=== PATIENT | female | born 1930 | race Caucasian/White ===

== ENCOUNTER 2017-03-09 12:36 | Emergency (ER) | payer OTHER ==
[~2017-03-09] VITALS: Ht 165.1 cm; Wt 66.0 kg
[~2017-03-09 12:36] MED LIST: CALC1TAB68 PO; CLON-364 PO; CLON0.12 PO; HYDR-3144 PO; HYDR-3307 PO; LISI-167 PO; METH500T97 PO; ONDA4TAB13 PO; POLY17PO5 PO; SERT100T5 PO; TIZA4TAB PO; TRAM50TA2 PO; ZOLP-413 PO
[2017-03-09] MEDS ORDERED: ONDANSETRON ODT 4 MG PO ONE (13:00)
[2017-03-09 13:27] LABS: HEMATOCRIT 36.8 % (34.6-47.8); HEMOGLOBIN 11.9 g/dL (11.7-16.4); WHITE BLOOD COUNT 11.3 x10^3/uL (3.4-10)
[2017-03-09 13:35] LABS: BLOOD UREA NITROGEN 9 mg/dL (7-18)
[2017-03-09 14:17] VITALS: BP 154/91
== END 2017-03-09 15:05 | disposition home or self-care (01) ==
LOC: ED 13:31
DX: S82.51XA Displaced fracture of medial malleolus of right tibia, initial encounter for closed fracture (principal); I10 Essential (primary) hypertension; F32.9 Major depressive disorder, single episode, unspecified; F11.20 Opioid dependence, uncomplicated; X58.XXXA Exposure to other specified factors, initial encounter; Y93.89 Activity, other specified; Y92.89 Other specified places as the place of occurrence of the external cause; Y99.8 Other external cause status; Z85.3 Personal history of malignant neoplasm of breast
CPT/HCPCS: 29515; 36415; 80048; 82040; 85025

== ENCOUNTER 2017-10-12 10:14 | Inpatient (IN) | payer OTHER ==
[~2017-10-12] VITALS: Ht 165.1 cm; Wt 64.7 kg
[~2017-10-12 10:14] MED LIST changes: -HYDR-3144 PO; +HYDR-3245 PO
[2017-10-12] MEDS ORDERED: IBUP200T49 PO (10:57)
[2017-10-12] MEDS ORDERED: OMEG1CAP34 PO (10:57)
[2017-10-12] MEDS ORDERED: MULT-6 PO (10:57)
[2017-10-12] MEDS ORDERED: SODIUM CHLORIDE FLUSH 10ML SYR IVF ONE (11:00)
[2017-10-12 11:43] LABS: BASOPHILS # (AUTO) 0.04 x10^3/uL (0-0.1); BASOPHILS % (AUTO) 1 % (0-1); EOSINOPHILS # (AUTO) 0.53 x10^3/uL (0-0.4); EOSINOPHILS % (AUTO) 7 % (1-7); LYMPHOCYTES # (AUTO) 1.59 x10^3/uL (1-3.4); LYMPHOCYTES % (AUTO) 20 % (22-44); MD NO; MEAN CORPUSCULAR HEMOGLOBIN 31.3 pg (27.0-34.8); MEAN CORPUSCULAR HGB CONC 33.4 g/dL (32.4-35.8); MEAN CORPUSCULAR VOLUME 93.9 fL (80-100); MEAN PLATELET VOLUME 7.5 fL (7.4-10.4); MONOCYTES # (AUTO) 0.87 x10^3/uL (0.2-0.8); MONOCYTES % (AUTO) 11 % (2-9); NEUTROPHILS # (AUTO) 5.11 x10^3/uL (1.8-6.8); NEUTROPHILS % (AUTO) 63 % (42-75); PLATELET COUNT 279 x10^3/uL (130-400); RED BLOOD COUNT 4.15 x10^6/uL (3.82-5.3); RED CELL DISTRIBUTION WIDTH 14.6 % (9.6-15.2)
[2017-10-12 11:52] LABS: MICROSCOPIC NOT IND
[2017-10-12 11:54] LABS: CULTURE INDICATED? NO
[2017-10-12 11:55] LABS: ALANINE AMINOTRANSFERASE 20 U/L (12-78); ALBUMIN 4.1 g/dL (3.4-5.0); ANION GAP 7 mmol/L (5-15); CALCIUM 9.3 mg/dL (8.5-10.1); CHLORIDE 103 mmol/L (98-107); CREATININE 0.65 mg/dL (0.55-1.02)
[2017-10-12 11:57] LABS: ALKALINE PHOSPHATASE 98 U/L (45-117); BILIRUBIN,TOTAL 0.6 mg/dL (0.2-1.0); CREATINE KINASE, TOTAL 69 U/L (26-192); TOTAL PROTEIN 7.8 g/dL (6.4-8.2)
[2017-10-12] MEDS ORDERED: SODIUM CHLORIDE FLUSH 10ML SYR IVF PRN (12:30)
[2017-10-12] MEDS ORDERED: ENALAPRILAT 1.25 MG/ML, 2ML IVPush PRN (13:30)
[2017-10-12] MEDS ORDERED: DOCUSATE 100 MG CAPSULE PO PRN (13:30)
[2017-10-12] MEDS ORDERED: POLYETHYLENE GLYCOL 17 GM PACKET PO PRN (13:30)
[2017-10-12] MEDS ORDERED: ONDANSETRON 2MG/ML, 2ML IVPush PRN (13:30)
[2017-10-12] MEDS ORDERED: ACETAMINOPHEN 325 MG TABLET PO PRN (13:30)
[2017-10-12] MEDS ORDERED: BISACODYL 10 MG SUPP PR PRN (13:30)
[2017-10-12] MEDS ORDERED: KETOROLAC 30 MG/1 ML IVPush PRN (13:30)
[2017-10-12 13:36] VITALS: BP 160/99
[2017-10-12 14:49] LABS: FOLATE LEVEL > 20.0 ng/mL (3.1-17.5)
[2017-10-12] MEDS: ENOXAPARIN 40 MG/0.4 ML SQ SCH (15:00)
[2017-10-12] MEDS: CALCIUM/VITAMIN D3 250-125 TABLET PO SCH ×2 (15:02→20:49)
[2017-10-12 17:02] LABS: CLOSTRIDIUM DIFFICILE ANTIGEN NEGATIVE; CLOSTRIDIUM DIFFICILE TOXIN NEGATIVE (Negative)
[2017-10-12 18:45] VITALS: BP 138/88
[2017-10-12] MEDS: SODIUM CHLORIDE FLUSH 10ML SYR IVF SCH (20:49)
[2017-10-13 01:38] VITALS: BP 129/86
[2017-10-13 07:10] VITALS: BP 148/84
[2017-10-13] MEDS: CALCIUM/VITAMIN D3 250-125 TABLET PO SCH ×3 (08:57→19:56)
[2017-10-13] MEDS: MULTIVITAMIN 1 TABLET PO SCH (08:57)
[2017-10-13] MEDS: SERTRALINE 100MG TABLET PO SCH (08:57)
[2017-10-13] MEDS: OMEGA-3/FISH OIL CAPSULE PO SCH (08:57)
[2017-10-13] MEDS: SODIUM CHLORIDE FLUSH 10ML SYR IVF SCH ×2 (08:58→19:58)
[2017-10-13 12:45] VITALS: BP 143/77
[2017-10-13] MEDS: ENOXAPARIN 40 MG/0.4 ML SQ SCH (16:09)
[2017-10-13] MEDS: LOPERAMIDE 2 MG CAPSULE PO PRN ×2 (16:09→19:56)
[2017-10-13 19:25] VITALS: BP 116/74
[2017-10-14] MEDS: LOPERAMIDE 2 MG CAPSULE PO PRN (00:27)
[2017-10-14 01:07] VITALS: BP 129/76
[2017-10-14 07:11] VITALS: BP 136/81
[2017-10-14] MEDS ORDERED: ZOLP5TAB PO (08:40)
[2017-10-14] MEDS ORDERED: BUSP5TAB2 PO (08:40)
[2017-10-14] MEDS: MULTIVITAMIN 1 TABLET PO SCH (08:41)
[2017-10-14] MEDS: OMEGA-3/FISH OIL CAPSULE PO SCH (08:41)
[2017-10-14] MEDS: BUSPIRONE 5 MG TABLET PO SCH ×2 (08:41→15:31)
[2017-10-14] MEDS: SODIUM CHLORIDE FLUSH 10ML SYR IVF SCH (08:41)
[2017-10-14] MEDS: CALCIUM/VITAMIN D3 250-125 TABLET PO SCH ×2 (08:42→15:31)
[2017-10-14] MEDS: SERTRALINE 100MG TABLET PO SCH (08:42)
[2017-10-14 13:20] VITALS: BP 115/74
[2017-10-14] MEDS: ENOXAPARIN 40 MG/0.4 ML SQ SCH (15:28)
[2017-10-14] MEDS ORDERED: ZOLPIDEM 5MG TABLET PO SCH (21:00)
== END 2017-10-14 16:51 | DRG 605 ==
LOC: ED 11:02 → EDIP 12:16 → 3NE 13:00
PROVIDERS: ADMIT Internal Medicine; ATTEND Internal Medicine
PROC: 0T9B70Z Drainage of Bladder with Drainage Device, Via Natural or Artificial Opening (ICD-10-PCS; principal; 2017-10-12)
DX: S80.01XA Contusion of right knee, initial encounter (principal); M84.48XA Pathological fracture, other site, initial encounter for fracture; F03.90 Unspecified dementia, unspecified severity, without behavioral disturbance, psychotic disturbance, mood disturbance, and anxiety; M06.9 Rheumatoid arthritis, unspecified; W01.0XXA Fall on same level from slipping, tripping and stumbling without subsequent striking against object, initial encounter; F32.9 Major depressive disorder, single episode, unspecified; G89.11 Acute pain due to trauma; I10 Essential (primary) hypertension; M81.0 Age-related osteoporosis without current pathological fracture; R19.7 Diarrhea, unspecified; R09.02 Hypoxemia; R29.6 Repeated falls; Z85.3 Personal history of malignant neoplasm of breast; Z90.11 Acquired absence of right breast and nipple; Y93.89 Activity, other specified; Y92.098 Other place in other non-institutional residence as the place of occurrence of the external cause; Y99.8 Other external cause status
CPT/HCPCS: 36415; 70450; 71045; 80053; 81003; 82550; 82607; 82746; 84443; 85025; 87324; 93005; 99285; J1650; J1885

== ENCOUNTER 2018-07-05 21:47 | Inpatient (IN) | payer OTHER ==
[~2018-07-05] VITALS: Ht 165.1 cm; Wt 71.0 kg
[~2018-07-05 21:47] MED LIST changes: +BUSP5TAB2 PO; -CLON-364 PO; +CLON0.5T11 PO; +IBUP200T49 PO; +MULT-6 PO; +OMEG1CAP34 PO; +ZOLP5TAB PO
[2018-07-05 22:32] LABS: BASOPHILS # (AUTO) 0.07 x10^3/uL (0-0.1); BASOPHILS % (AUTO) 1 % (0-1); EOSINOPHILS # (AUTO) 0.24 x10^3/uL (0-0.4); EOSINOPHILS % (AUTO) 2 % (1-7); LYMPHOCYTES # (AUTO) 1.48 x10^3/uL (1-3.4); LYMPHOCYTES % (AUTO) 14 % (22-44); MD NO; MEAN CORPUSCULAR HEMOGLOBIN 32.3 pg (27.0-34.8); MEAN CORPUSCULAR HGB CONC 33.4 g/dL (32.4-35.8); MEAN CORPUSCULAR VOLUME 96.7 fL (80-100); MEAN PLATELET VOLUME 7.8 fL (7.4-10.4); MONOCYTES # (AUTO) 0.66 x10^3/uL (0.2-0.8); MONOCYTES % (AUTO) 6 % (2-9); NEUTROPHILS # (AUTO) 7.89 x10^3/uL (1.8-6.8); NEUTROPHILS % (AUTO) 76 % (42-75); PLATELET COUNT 240 x10^3/uL (130-400); RED BLOOD COUNT 4.04 x10^6/uL (3.82-5.3); RED CELL DISTRIBUTION WIDTH 13.6 % (9.6-15.2)
[2018-07-05 22:58] LABS: CALCIUM 8.7 mg/dL (8.5-10.1); CREATININE 0.68 mg/dL (0.55-1.02)
[2018-07-05] MEDS ORDERED: MORPHINE SULFATE 4 MG/ML, 1ML ONE ×2 (22:58→23:37)
[2018-07-05] MEDS ORDERED: ONDANSETRON 2MG/ML, 2ML IVPush ONE (23:00)
[2018-07-05] MEDS ORDERED: MORPHINE SULFATE 4 MG/ML, 1ML IVPush PRN (23:00)
[2018-07-05 23:01] LABS: ANION GAP 7 mmol/L (5-15); CHLORIDE 101 mmol/L (98-107)
[2018-07-05] MEDS ORDERED: SODIUM CHLORIDE 0.9% 1,000 ML IV SCH (23:07)
[2018-07-05 23:19] LABS: INTERNATIONAL NORMALIZED RATIO 0.99 (0.93-1.1); PROTHROMBIN TIME 10.5 Seconds (9.6-11.5)
[2018-07-05] MEDS ORDERED: GABA300C10 PO (23:28)
[2018-07-05] MEDS ORDERED: DOCUSATE 100 MG CAPSULE PO PRN (23:30)
[2018-07-05] MEDS ORDERED: GABAPENTIN 300 MG CAPSULE PO PRN (23:30)
[2018-07-05] MEDS ORDERED: PROMETHAZINE 25 MG/ML, 1ML IM PRN (23:30)
[2018-07-05] MEDS ORDERED: ONDANSETRON ODT 4 MG PO PRN (23:30)
[2018-07-05] MEDS ORDERED: hydrALAzine 20 MG/ML, 1ML IVPush PRN (23:30)
[2018-07-05] MEDS ORDERED: ONDANSETRON 2MG/ML, 2ML IVPush PRN (23:30)
[2018-07-05] MEDS ORDERED: LABETALOL 5MG/ML, 20ML IVPush PRN (23:30)
[2018-07-05] MEDS ORDERED: POLYETHYLENE GLYCOL 17 GM PACKET PO PRN (23:30)
[2018-07-05] MEDS ORDERED: BISACODYL 10 MG SUPP PR PRN (23:30)
[2018-07-05] MEDS ORDERED: OXYcodone/APAP 5/325MG TABLET PO PRN (23:30)
[2018-07-05] MEDS ORDERED: ONDANSETRON 2MG/ML, 2ML ONE (23:37)
[2018-07-06] MEDS: morphine SULFATE 10 MG/ML, 1ML IVPush PRN ×3 (00:20→10:10)
[2018-07-06 00:53] LABS: FREE T4 (FREE THYROXINE) 0.97 ng/dL (0.76-1.46); THYROID STIMULATING HORMONE 5.89 mIU/L (0.358-3.740)
[2018-07-06 00:55] VITALS: BP 170/92
[2018-07-06 01:00] VITALS: BP 131/83
[2018-07-06 01:53] LABS: MICROSCOPIC AUTO
[2018-07-06 01:58] LABS: CULTURE INDICATED? YES
[2018-07-06 05:48] LABS: BASOPHILS # (AUTO) 0.02 x10^3/uL (0-0.1); BASOPHILS % (AUTO) 0 % (0-1); EOSINOPHILS # (AUTO) 0.01 x10^3/uL (0-0.4); EOSINOPHILS % (AUTO) 0 % (1-7); LYMPHOCYTES # (AUTO) 0.81 x10^3/uL (1-3.4); LYMPHOCYTES % (AUTO) 6 % (22-44); MD NO; MEAN CORPUSCULAR HEMOGLOBIN 32.5 pg (27.0-34.8); MEAN CORPUSCULAR VOLUME 95.4 fL (80-100); MEAN PLATELET VOLUME 7.8 fL (7.4-10.4); MONOCYTES # (AUTO) 1.02 x10^3/uL (0.2-0.8); MONOCYTES % (AUTO) 8 % (2-9); NEUTROPHILS # (AUTO) 10.88 x10^3/uL (1.8-6.8); NEUTROPHILS % (AUTO) 86 % (42-75); PLATELET COUNT 221 x10^3/uL (130-400); RED BLOOD COUNT 3.97 x10^6/uL (3.82-5.3); RED CELL DISTRIBUTION WIDTH 13.3 % (9.6-15.2)
[2018-07-06 05:53] LABS: CHLORIDE 102 mmol/L (98-107)
[2018-07-06 06:11] LABS: ALANINE AMINOTRANSFERASE 25 U/L (12-78); ALBUMIN 3.7 g/dL (3.4-5.0); ALKALINE PHOSPHATASE 68 U/L (45-117); ANION GAP 9 mmol/L (5-15); BILIRUBIN,TOTAL 0.4 mg/dL (0.2-1.0); CHOL/HDL RATIO 3.8; CHOLESTEROL, TOTAL 248 mg/dL (140-239); CREATININE 0.65 mg/dL (0.55-1.02); HDL CHOL % 27 % (28-40); HDL CHOLESTEROL (DIRECT) 66 mg/dL (40-60); LDL CHOLESTEROL,CALCULATED 173 mg/dL (54-169); LDL/HDL RATIO 2.6 (0.5-3.0); TOTAL PROTEIN 6.6 g/dL (6.4-8.2); TRIGLYCERIDES 44 mg/dL (50-200); VLDL CHOLESTEROL 9 mg/dL (0-25)
[2018-07-06 08:06] VITALS: BP 154/88
[2018-07-06 10:00] LABS: TROPONIN I < 0.015 ng/mL (0.000-0.045)
[2018-07-06 13:15] LABS: HEMOGLOBIN A1C 4.2 % (4.2-6.3)
[2018-07-06 14:06] VITALS: BP 142/79
[2018-07-06] MEDS ORDERED: FENTANYL PF 100 MCG/2ML ONE ×3 (16:56→19:14)
[2018-07-06] MEDS ORDERED: SUCCINYLCHOLINE 20 MG/ML, 10ML ONE (17:39)
[2018-07-06] MEDS ORDERED: LIDOCAINE 2% 100MG/5ML SYRINGE ONE (17:39)
[2018-07-06] MEDS ORDERED: ROCURONIUM 10MG/ML,5ML ONE (17:39)
[2018-07-06] MEDS ORDERED: PROPOFOL 10 MG/ML, 20ML ONE (17:39)
[2018-07-06] MEDS ORDERED: ACETAMINOPHEN 325 MG TABLET PO PRN (19:00)
[2018-07-06] MEDS ORDERED: LABETALOL 5MG/ML, 20ML IV PRN (19:00)
[2018-07-06] MEDS ORDERED: HYDROmorphone 2 MG/ML, 1ML IVPush PRN ×2 (19:00→21:30)
[2018-07-06] MEDS ORDERED: OXYcodone 5 MG/5 ML ORAL.SOL UDC PO PRN ×2 (19:00→21:00)
[2018-07-06] MEDS ORDERED: hydrALAzine 20 MG/ML, 1ML IV PRN (19:00)
[2018-07-06] MEDS ORDERED: FENTANYL PF 100 MCG/2ML IV PRN (19:00)
[2018-07-06] MEDS ORDERED: ONDANSETRON ODT 8 MG PO PRN (19:00)
[2018-07-06] MEDS ORDERED: ONDANSETRON 2MG/ML, 2ML IV PRN ×2 (19:00→21:00)
[2018-07-06] MEDS ORDERED: PROMETHAZINE 25 MG/ML, 1ML IV PRN (19:00)
[2018-07-06] MEDS ORDERED: OXYcodone 5 MG/5 ML ORAL.SOL UDC ONE (19:14)
[2018-07-06 20:09] VITALS: BP 147/83
[2018-07-06] MEDS ORDERED: ASPI-496 PO (20:42)
[2018-07-06] MEDS: CLONAZEPAM MC SCH (21:00)
[2018-07-06] MEDS ORDERED: DIPHENHYDRAMINE 25 MG CAPSULE PO PRN (21:00)
[2018-07-06] MEDS ORDERED: HYDROcodone/APAP 7.5-325MG/15ML UDC PO PRN (21:00)
[2018-07-06] MEDS: KETOROLAC 30 MG/1 ML IV SCH (21:41)
[2018-07-06] MEDS: ATORVASTATIN 40 MG TABLET PO SCH (21:41)
[2018-07-06] MEDS: ACETAMINOPHEN 325 MG TABLET PO PRN (21:41)
[2018-07-06] MEDS: DOCUSATE 100 MG CAPSULE PO SCH (21:41)
[2018-07-06] MEDS: SODIUM CHLORIDE FLUSH 10ML SYR IVF SCH (21:42)
[2018-07-07 00:21] VITALS: BP 94/59
[2018-07-07] MEDS: CLONAZEPAM MC SCH ×2 (00:32→13:00)
[2018-07-07] MEDS: CEFAZOLIN PMX 1GM/50ML 50 ML IVPB SCH ×2 (01:24→13:05)
[2018-07-07 03:06] VITALS: BP 144/82
[2018-07-07] MEDS: ASPIRIN 81 MG TABLET EC PO SCH ×2 (06:47→17:02)
[2018-07-07] MEDS: KETOROLAC 30 MG/1 ML IV SCH ×2 (06:47→15:00)
[2018-07-07] MEDS: ENOXAPARIN 40 MG/0.4 ML SQ SCH (06:47)
[2018-07-07 07:07] VITALS: BP 141/74
[2018-07-07] MEDS: SODIUM CHLORIDE FLUSH 10ML SYR IVF SCH ×2 (09:00→21:00)
[2018-07-07] MEDS ORDERED: ERGOCALCIFEROL 50,000 UNIT CAPSULE PO SCH (09:00)
[2018-07-07] MEDS: SERTRALINE 100MG TABLET PO SCH (09:47)
[2018-07-07] MEDS: MULTIVITAMIN 1 TABLET PO SCH (09:47)
[2018-07-07] MEDS: GABAPENTIN 300 MG CAPSULE PO SCH (09:47)
[2018-07-07] MEDS: DOCUSATE 100 MG CAPSULE PO SCH ×2 (09:47→21:14)
[2018-07-07] MEDS: OMEGA-3/FISH OIL CAPSULE PO SCH (09:47)
[2018-07-07 13:01] VITALS: BP 185/78
[2018-07-07 13:11] VITALS: BP 157/81
[2018-07-07 20:49] VITALS: BP 136/80
[2018-07-07] MEDS: ATORVASTATIN 40 MG TABLET PO SCH (21:14)
[2018-07-08 01:56] VITALS: BP 149/76
[2018-07-08] MEDS: ASPIRIN 81 MG TABLET EC PO SCH ×2 (06:17→18:30)
[2018-07-08] MEDS: ENOXAPARIN 40 MG/0.4 ML SQ SCH (06:17)
[2018-07-08 07:25] VITALS: BP 146/84
[2018-07-08] MEDS: SERTRALINE 100MG TABLET PO SCH (08:47)
[2018-07-08] MEDS: MULTIVITAMIN 1 TABLET PO SCH (08:47)
[2018-07-08] MEDS: OMEGA-3/FISH OIL CAPSULE PO SCH (08:47)
[2018-07-08] MEDS: DOCUSATE 100 MG CAPSULE PO SCH ×2 (08:47→20:01)
[2018-07-08] MEDS: SODIUM CHLORIDE FLUSH 10ML SYR IVF SCH ×2 (08:48→20:01)
[2018-07-08] MEDS: GABAPENTIN 300 MG CAPSULE PO SCH (08:48)
[2018-07-08 13:24] VITALS: BP 140/79
[2018-07-08 19:22] VITALS: BP 147/80
[2018-07-08] MEDS: ATORVASTATIN 40 MG TABLET PO SCH (20:01)
[2018-07-09 01:46] VITALS: BP 136/77
[2018-07-09] MEDS: ACETAMINOPHEN 325 MG TABLET PO PRN (03:15)
[2018-07-09] MEDS: ENOXAPARIN 40 MG/0.4 ML SQ SCH (06:08)
[2018-07-09] MEDS: ASPIRIN 81 MG TABLET EC PO SCH ×2 (06:08→18:56)
[2018-07-09 08:00] VITALS: BP 127/83
[2018-07-09] MEDS: GABAPENTIN 300 MG CAPSULE PO SCH (08:59)
[2018-07-09] MEDS: SERTRALINE 100MG TABLET PO SCH (08:59)
[2018-07-09] MEDS: DOCUSATE 100 MG CAPSULE PO SCH (09:00)
[2018-07-09] MEDS: MULTIVITAMIN 1 TABLET PO SCH (09:00)
[2018-07-09] MEDS: OMEGA-3/FISH OIL CAPSULE PO SCH (09:00)
[2018-07-09] MEDS: SODIUM CHLORIDE FLUSH 10ML SYR IVF SCH (09:11)
[2018-07-09 10:23] LABS: BASOPHILS # (AUTO) 0.01 x10^3/uL (0-0.1); BASOPHILS % (AUTO) 0 % (0-1); EOSINOPHILS % (AUTO) 6 % (1-7); LYMPHOCYTES # (AUTO) 0.91 x10^3/uL (1-3.4); LYMPHOCYTES % (AUTO) 11 % (22-44); MD NO; MEAN CORPUSCULAR HEMOGLOBIN 32.6 pg (27.0-34.8); MEAN CORPUSCULAR HGB CONC 33.9 g/dL (32.4-35.8); MEAN CORPUSCULAR VOLUME 96.2 fL (80-100); MEAN PLATELET VOLUME 7.9 fL (7.4-10.4); MONOCYTES # (AUTO) 0.81 x10^3/uL (0.2-0.8); MONOCYTES % (AUTO) 9 % (2-9); NEUTROPHILS # (AUTO) 6.45 x10^3/uL (1.8-6.8); NEUTROPHILS % (AUTO) 74 % (42-75); PLATELET COUNT 220 x10^3/uL (130-400); RED BLOOD COUNT 3.28 x10^6/uL (3.82-5.3); RED CELL DISTRIBUTION WIDTH 13.3 % (9.6-15.2)
[2018-07-09 10:29] LABS: ANION GAP 7 mmol/L (5-15); CALCIUM 8.4 mg/dL (8.5-10.1); CHLORIDE 103 mmol/L (98-107); CREATININE 0.54 mg/dL (0.55-1.02)
[2018-07-09 13:35] VITALS: BP 130/79
[2018-07-09] MEDS ORDERED: DOCU-131 PO (14:31)
[2018-07-09] MEDS ORDERED: OXYC1TAB7 PO (14:31)
[2018-07-09] MEDS ORDERED: ERGO500017 PO (14:31)
[2018-07-09] MEDS ORDERED: ATOR40TA78 PO (14:31)
[2018-07-09] MEDS ORDERED: TRAM50TA2 PO (16:06)
== END 2018-07-09 19:30 | DRG 470 ==
LOC: ED 22:21 → EDIP 23:07 → 4NOR 23:51
PROVIDERS: ADMIT Internal Medicine; ATTEND Internal Medicine
PROC: 0T9B70Z Drainage of Bladder with Drainage Device, Via Natural or Artificial Opening (ICD-10-PCS; 2018-07-06)
PROC: 0SRS0J9 Replacement of Left Hip Joint, Femoral Surface with Synthetic Substitute, Cemented, Open Approach (ICD-10-PCS; principal; 2018-07-06 16:30)
DX: S72.002A Fracture of unspecified part of neck of left femur, initial encounter for closed fracture (principal); E55.9 Vitamin D deficiency, unspecified; E78.5 Hyperlipidemia, unspecified; M81.0 Age-related osteoporosis without current pathological fracture; F03.90 Unspecified dementia, unspecified severity, without behavioral disturbance, psychotic disturbance, mood disturbance, and anxiety; F32.9 Major depressive disorder, single episode, unspecified; J44.9 Chronic obstructive pulmonary disease, unspecified; F41.9 Anxiety disorder, unspecified; I10 Essential (primary) hypertension; M06.9 Rheumatoid arthritis, unspecified; R29.6 Repeated falls; W18.39XA Other fall on same level, initial encounter; Y93.89 Activity, other specified; Z85.3 Personal history of malignant neoplasm of breast; Z90.11 Acquired absence of right breast and nipple; Y92.038 Other place in apartment as the place of occurrence of the external cause; Y99.8 Other external cause status; Z99.81 Dependence on supplemental oxygen
CPT/HCPCS: 36415; 70450; 71045; 80048; 80053; 80061; 81001; 82040; 82306; 82607; 83036; 83735; 84439; 84443; 84484; 85025; 85610; 85730; 87086; 93005; 96374; 99285; C1713; G0378; J0690; J1650; J1885; J2704; J3010; C1762; C1776; J0330; J2270; J7030

== ENCOUNTER 2018-07-11 09:44 | Observation (INO) | payer OTHER ==
[~2018-07-11] VITALS: Ht 167.6 cm; Wt 66.0 kg
[~2018-07-11 09:44] MED LIST changes: +ASPI-496 PO; +ATOR40TA78 PO; +DOCU-131 PO; +ERGO500017 PO; +GABA300C10 PO; +OXYC1TAB7 PO
[2018-07-11] MEDS ORDERED: MELO7.5T31 PO (10:25)
[2018-07-11] MEDS ORDERED: BUSP15TA PO (10:26)
[2018-07-11] MEDS ORDERED: GABA100C PO (10:27)
[2018-07-11] MEDS ORDERED: CLON1TAB11 PO (10:28)
[2018-07-11 11:51] LABS: BASOPHILS # (AUTO) 0.07 x10^3/uL (0-0.1); BASOPHILS % (AUTO) 1 % (0-1); EOSINOPHILS # (AUTO) 0.29 x10^3/uL (0-0.4); EOSINOPHILS % (AUTO) 4 % (1-7); LYMPHOCYTES # (AUTO) 1.32 x10^3/uL (1-3.4); LYMPHOCYTES % (AUTO) 16 % (22-44); MD NO; MEAN CORPUSCULAR HEMOGLOBIN 32.4 pg (27.0-34.8); MEAN CORPUSCULAR VOLUME 95.4 fL (80-100); MEAN PLATELET VOLUME 7.5 fL (7.4-10.4); MONOCYTES # (AUTO) 1.12 x10^3/uL (0.2-0.8); MONOCYTES % (AUTO) 14 % (2-9); NEUTROPHILS # (AUTO) 5.36 x10^3/uL (1.8-6.8); NEUTROPHILS % (AUTO) 66 % (42-75); PLATELET COUNT 311 x10^3/uL (130-400); RED BLOOD COUNT 3.61 x10^6/uL (3.82-5.3); RED CELL DISTRIBUTION WIDTH 13.1 % (9.6-15.2)
[2018-07-11 11:53] LABS: ANION GAP 8 mmol/L (5-15); CALCIUM 9.3 mg/dL (8.5-10.1); CHLORIDE 102 mmol/L (98-107); CREATININE 0.56 mg/dL (0.55-1.02)
[2018-07-11] MEDS ORDERED: ONDANSETRON ODT 4 MG PO PRN (12:00)
[2018-07-11] MEDS ORDERED: ONDANSETRON 2MG/ML, 2ML IVPush PRN (12:00)
[2018-07-11 13:00] VITALS: BP 132/79
[2018-07-11 13:06] LABS: MICROSCOPIC NOT IND
[2018-07-11 13:08] LABS: CULTURE INDICATED? NO
[2018-07-11] MEDS ORDERED: MORPHINE SULFATE 4 MG/ML, 1ML IVPush PRN (16:00)
[2018-07-11 18:47] VITALS: BP 144/83
[2018-07-11] MEDS: ENOXAPARIN 40 MG/0.4 ML SQ SCH (21:00)
[2018-07-11] MEDS: BUSPIRONE 5 MG TABLET PO SCH (21:00)
[2018-07-11] MEDS ORDERED: BUSPIRONE 10 MG TABLET ONE (22:11)
[2018-07-11] MEDS: CALCIUM/VITAMIN D3 250-125 TABLET PO SCH (22:18)
[2018-07-11] MEDS: ZOLPIDEM 5MG TABLET PO SCH (22:18)
[2018-07-11] MEDS: GABAPENTIN 100 MG CAPSULE PO SCH (22:18)
[2018-07-12 00:26] VITALS: BP 146/93
[2018-07-12 07:21] VITALS: BP 155/95
[2018-07-12] MEDS ORDERED: BUSPIRONE 10 MG TABLET ONE (07:56)
[2018-07-12] MEDS: MULTIVITAMIN 1 TABLET PO SCH (08:00)
[2018-07-12] MEDS: BUSPIRONE 5 MG TABLET PO SCH ×2 (08:01→21:46)
[2018-07-12] MEDS: OMEGA-3/FISH OIL CAPSULE PO SCH (08:02)
[2018-07-12] MEDS: CALCIUM/VITAMIN D3 250-125 TABLET PO SCH ×3 (08:02→21:47)
[2018-07-12] MEDS: GABAPENTIN 100 MG CAPSULE PO SCH ×3 (08:02→21:47)
[2018-07-12] MEDS: SERTRALINE 50MG TABLET PO SCH (08:02)
[2018-07-12 14:13] VITALS: BP 115/68
[2018-07-12 19:45] VITALS: BP 118/67
[2018-07-12] MEDS: ZOLPIDEM 5MG TABLET PO SCH (21:46)
[2018-07-12] MEDS: ENOXAPARIN 40 MG/0.4 ML SQ SCH (21:50)
[2018-07-13 02:39] VITALS: BP 150/82
[2018-07-13 06:00] LABS: BASOPHILS # (AUTO) 0.07 x10^3/uL (0-0.1); BASOPHILS % (AUTO) 1 % (0-1); EOSINOPHILS # (AUTO) 0.36 x10^3/uL (0-0.4); EOSINOPHILS % (AUTO) 4 % (1-7); LYMPHOCYTES # (AUTO) 2.08 x10^3/uL (1-3.4); LYMPHOCYTES % (AUTO) 20 % (22-44); MD NO; MEAN CORPUSCULAR HGB CONC 33.8 g/dL (32.4-35.8); MEAN CORPUSCULAR VOLUME 94.6 fL (80-100); MEAN PLATELET VOLUME 7.4 fL (7.4-10.4); MONOCYTES # (AUTO) 1.01 x10^3/uL (0.2-0.8); MONOCYTES % (AUTO) 10 % (2-9); NEUTROPHILS % (AUTO) 66 % (42-75); PLATELET COUNT 383 x10^3/uL (130-400); RED BLOOD COUNT 3.72 x10^6/uL (3.82-5.3); RED CELL DISTRIBUTION WIDTH 13.7 % (9.6-15.2)
[2018-07-13 06:07] LABS: ALANINE AMINOTRANSFERASE 35 U/L (12-78); ALBUMIN 3.2 g/dL (3.4-5.0); ANION GAP 6 mmol/L (5-15); CALCIUM 9.7 mg/dL (8.5-10.1); CHLORIDE 100 mmol/L (98-107)
[2018-07-13 06:09] LABS: ALKALINE PHOSPHATASE 73 U/L (45-117); BILIRUBIN,TOTAL 0.7 mg/dL (0.2-1.0); TOTAL PROTEIN 6.8 g/dL (6.4-8.2)
[2018-07-13 07:13] VITALS: BP 146/84
[2018-07-13] MEDS ORDERED: BUSPIRONE 10 MG TABLET ONE ×2 (08:30→21:10)
[2018-07-13] MEDS: BUSPIRONE 5 MG TABLET PO SCH ×2 (09:00→21:00)
[2018-07-13] MEDS: SERTRALINE 50MG TABLET PO SCH (09:05)
[2018-07-13] MEDS: OMEGA-3/FISH OIL CAPSULE PO SCH (09:05)
[2018-07-13] MEDS: CALCIUM/VITAMIN D3 250-125 TABLET PO SCH ×3 (09:05→21:28)
[2018-07-13] MEDS: GABAPENTIN 100 MG CAPSULE PO SCH ×3 (09:05→21:27)
[2018-07-13] MEDS: MULTIVITAMIN 1 TABLET PO SCH (09:05)
[2018-07-13 13:31] VITALS: BP 142/79
[2018-07-13 18:21] VITALS: BP 147/92
[2018-07-13] MEDS: ZOLPIDEM 5MG TABLET PO SCH ×2 (21:00→23:50)
[2018-07-13] MEDS: ENOXAPARIN 40 MG/0.4 ML SQ SCH (21:28)
[2018-07-14 01:04] VITALS: BP 125/81
[2018-07-14 06:10] LABS: FREE T4 (FREE THYROXINE) 1.39 ng/dL (0.76-1.46)
[2018-07-14 06:42] VITALS: BP 151/76
[2018-07-14] MEDS: BUSPIRONE 5 MG TABLET PO SCH ×2 (07:57→19:56)
[2018-07-14] MEDS: SERTRALINE 50MG TABLET PO SCH (07:57)
[2018-07-14] MEDS: OMEGA-3/FISH OIL CAPSULE PO SCH (07:57)
[2018-07-14] MEDS: GABAPENTIN 100 MG CAPSULE PO SCH ×3 (07:57→19:55)
[2018-07-14] MEDS: CALCIUM/VITAMIN D3 250-125 TABLET PO SCH ×3 (07:57→19:55)
[2018-07-14] MEDS: MULTIVITAMIN 1 TABLET PO SCH (07:57)
[2018-07-14 13:24] VITALS: BP 139/74
[2018-07-14 18:55] VITALS: BP 142/75
[2018-07-14] MEDS ORDERED: BUSPIRONE 10 MG TABLET ONE (19:53)
[2018-07-14] MEDS: ENOXAPARIN 40 MG/0.4 ML SQ SCH (19:56)
[2018-07-14] MEDS: ZOLPIDEM 5MG TABLET PO SCH (19:56)
[2018-07-15 03:59] VITALS: BP 146/84
[2018-07-15 05:33] LABS: BASOPHILS # (AUTO) 0.11 x10^3/uL (0-0.1); BASOPHILS % (AUTO) 1 % (0-1); EOSINOPHILS # (AUTO) 0.66 x10^3/uL (0-0.4); EOSINOPHILS % (AUTO) 7 % (1-7); LYMPHOCYTES # (AUTO) 1.95 x10^3/uL (1-3.4); LYMPHOCYTES % (AUTO) 21 % (22-44); MD NO; MEAN CORPUSCULAR HEMOGLOBIN 31.4 pg (27.0-34.8); MEAN CORPUSCULAR VOLUME 95.2 fL (80-100); MEAN PLATELET VOLUME 7.2 fL (7.4-10.4); MONOCYTES # (AUTO) 1.05 x10^3/uL (0.2-0.8); MONOCYTES % (AUTO) 11 % (2-9); NEUTROPHILS # (AUTO) 5.69 x10^3/uL (1.8-6.8); NEUTROPHILS % (AUTO) 60 % (42-75); PLATELET COUNT 406 x10^3/uL (130-400); RED BLOOD COUNT 3.54 x10^6/uL (3.82-5.3); RED CELL DISTRIBUTION WIDTH 13.3 % (9.6-15.2)
[2018-07-15 05:40] LABS: ANION GAP 8 mmol/L (5-15); CALCIUM 9.2 mg/dL (8.5-10.1); CHLORIDE 103 mmol/L (98-107); CREATININE 0.62 mg/dL (0.55-1.02)
[2018-07-15 08:00] VITALS: BP 134/80
[2018-07-15] MEDS: GABAPENTIN 100 MG CAPSULE PO SCH (08:10)
[2018-07-15] MEDS: MULTIVITAMIN 1 TABLET PO SCH (08:10)
[2018-07-15] MEDS: OMEGA-3/FISH OIL CAPSULE PO SCH (08:10)
[2018-07-15] MEDS: CALCIUM/VITAMIN D3 250-125 TABLET PO SCH (08:10)
[2018-07-15] MEDS: SERTRALINE 50MG TABLET PO SCH (08:10)
[2018-07-15] MEDS: BUSPIRONE 5 MG TABLET PO SCH (08:11)
[2018-07-15] MEDS ORDERED: ENOX40SY4 SQ (10:29)
[2018-07-15 13:38] VITALS: BP 120/62
== END 2018-07-15 16:45 | disposition home or self-care (01) ==
LOC: ED 11:22 → EDIP 11:36 → 4NOR 13:20 → DCLOUNGE 07-15 16:25
PROVIDERS: ADMIT Hospitalist; ATTEND Hospitalist
DX: S72.002A Fracture of unspecified part of neck of left femur, initial encounter for closed fracture (principal); M54.9 Dorsalgia, unspecified; F32.9 Major depressive disorder, single episode, unspecified; F41.9 Anxiety disorder, unspecified; M06.9 Rheumatoid arthritis, unspecified; E55.9 Vitamin D deficiency, unspecified; F03.90 Unspecified dementia, unspecified severity, without behavioral disturbance, psychotic disturbance, mood disturbance, and anxiety; I10 Essential (primary) hypertension; Z79.82 Long term (current) use of aspirin; X58.XXXA Exposure to other specified factors, initial encounter; Y93.89 Activity, other specified; Y92.89 Other specified places as the place of occurrence of the external cause; Y99.8 Other external cause status; Z85.3 Personal history of malignant neoplasm of breast; Z90.11 Acquired absence of right breast and nipple; Z96.642 Presence of left artificial hip joint
CPT/HCPCS: 36415; 70450; 71045; 73502; 80048; 80053; 81003; 82040; 82607; 84439; 84443; 85025; 96372; 96374; 97162; 97166; 97530; 99284; G0378; G8978; G8979; G8980; J1650

== ENCOUNTER 2018-08-15 11:08 | Observation (INO) | payer OTHER ==
[~2018-08-15] VITALS: Ht 165.1 cm; Wt 70.0 kg
[~2018-08-15 11:08] MED LIST changes: +BUSP15TA PO; +CLON1TAB11 PO; +ENOX40SY4 SQ; +GABA100C PO; +MELO7.5T31 PO; +SERT100T32 PO; -SERT100T5 PO
[2018-08-15] MEDS ORDERED: SODIUM CHLORIDE FLUSH 10ML SYR IVF ONE (11:30)
--- NOTE | 2018-08-15 11:34 | NUR ---
bib remsa for bilat hip pain following multiple falls. last fall 2 days ago. pt's manager library also states odorous urine and diarrhea. pt's manager library states she fell approx 1 week ago and hit her head. no dizziness or n/v at the time. iv in place upon arrival. 1g tylenol and 50 tramadol given by manager library approx 4 hours ago. 50mcg fentanyl given in route by ems. connected to all monitors. vss. md to bedside for assessment. orders received. pt to xray now. call light within reach. family and manager library at bedside.
[2018-08-15 12:23] LABS: MICROSCOPIC NOT IND
[2018-08-15 12:26] LABS: CULTURE INDICATED? NO
[2018-08-15 12:41] LABS: MEAN CORPUSCULAR HEMOGLOBIN 31.2 pg (27.0-34.8); MEAN CORPUSCULAR HGB CONC 33.4 g/dL (32.4-35.8); MEAN CORPUSCULAR VOLUME 93.3 fL (80-100); PLATELET COUNT 229 x10^3/uL (130-400); RED CELL DISTRIBUTION WIDTH 14.4 % (9.6-15.2)
--- NOTE | 2018-08-15 12:41 | NUR ---
md at bedside to update on poc.
--- NOTE | 2018-08-15 12:49 | NUR ---
AWAITING LAB RESULTS AT THIS TIME. VSS. NO DISTRESS NOTED. CALL IGHT WITHIN REACH.
[2018-08-15 12:57] LABS: ALBUMIN 3.3 g/dL (3.4-5.0); ANION GAP 5 mmol/L (5-15); CALCIUM 9.4 mg/dL (8.5-10.1); CHLORIDE 107 mmol/L (98-107)
[2018-08-15 13:01] LABS: ALANINE AMINOTRANSFERASE 16 U/L (12-78); ALKALINE PHOSPHATASE 77 U/L (45-117); BASOPHILS # (AUTO) 0.03 x10^3/uL (0-0.1); BASOPHILS % (AUTO) 0 % (0-1); BILIRUBIN,TOTAL 0.6 mg/dL (0.2-1.0); CREATININE 0.58 mg/dL (0.55-1.02); EOSINOPHILS # (AUTO) 0.08 x10^3/uL (0-0.4); EOSINOPHILS % (AUTO) 1 % (1-7); LYMPHOCYTES # (AUTO) 1.36 x10^3/uL (1-3.4); LYMPHOCYTES % (AUTO) 14 % (22-44); MD SCAN; MONOCYTES # (AUTO) 1.45 x10^3/uL (0.2-0.8); MONOCYTES % (AUTO) 14 % (2-9); NEUTROPHILS # (AUTO) 7.15 x10^3/uL (1.8-6.8); NEUTROPHILS % (AUTO) 71 % (42-75); TOTAL PROTEIN 6.7 g/dL (6.4-8.2)
--- NOTE | 2018-08-15 13:18 | NUR ---
md to bedside to update on results and poc.
--- NOTE | 2018-08-15 13:24 | NUR ---
pt's son called and asked to return to [facility]. son stated he'd rather the pt's caregiver was present. caregiver (juliane) was called. no answer, voicemail left.
--- NOTE | 2018-08-15 13:41 | NUR ---
attempted road test with tech and walker per md request. pt fail road test, was too weak to stand and had to be eased to ground by tech. pt reporting no pain. small skin tear noted to right forearm. currently being cleaned and dressed with bandage. md present. pt to be admitted to [facility] stable. call light within reach. awaiting room assignment at this time.
[2018-08-15] MEDS ORDERED: SODIUM CHLORIDE FLUSH 10ML SYR IVF PRN (14:00)
[2018-08-15] MEDS ORDERED: ONDANSETRON ODT 4 MG PO PRN (15:00)
[2018-08-15] MEDS ORDERED: POLYETHYLENE GLYCOL 17 GM PACKET PO PRN (15:00)
[2018-08-15] MEDS ORDERED: LABETALOL 5MG/ML, 20ML IVPush PRN (15:00)
[2018-08-15] MEDS ORDERED: ONDANSETRON 2MG/ML, 2ML IVPush PRN (15:00)
[2018-08-15 15:28] LABS: FREE T4 (FREE THYROXINE) 1.04 ng/dL (0.76-1.46)
[2018-08-15] MEDS ORDERED: ZOLP-413 PO (15:34)
[2018-08-15 15:45] VITALS: BP 159/84
[2018-08-15] MEDS: D5%-0.45% NACL 1,000 ML IV SCH (15:48)
[2018-08-15] MEDS: ENOXAPARIN 40 MG/0.4 ML SQ SCH (15:48)
[2018-08-15 18:35] VITALS: BP 154/78
[2018-08-15 19:20] LABS: CLOSTRIDIUM DIFFICILE ANTIGEN NEGATIVE; CLOSTRIDIUM DIFFICILE TOXIN NEGATIVE (Negative)
[2018-08-15] MEDS ORDERED: ENOXAPARIN 40 MG/0.4 ML SQ SCH (19:30)
[2018-08-15] MEDS ORDERED: MORPHINE SULFATE 4 MG/ML, 1ML IVPush PRN (20:00)
[2018-08-15] MEDS ORDERED: HYDROcodone/APAP 5/325 TABLET PO PRN (20:00)
[2018-08-15] MEDS: BUSPIRONE 5 MG TABLET PO SCH (21:44)
[2018-08-15] MEDS: GABAPENTIN 100 MG CAPSULE PO SCH (21:44)
[2018-08-15] MEDS: LIDODERM 5% PATCH TD SCH (21:45)
[2018-08-15] MEDS: QUETIAPINE 25MG TABLET PO SCH (21:49)
[2018-08-16] MEDS: ACETAMINOPHEN 325 MG TABLET PO PRN ×3 (02:22→13:56)
[2018-08-16] MEDS: D5%-0.45% NACL 1,000 ML IV SCH ×2 (02:25→13:56)
[2018-08-16 03:40] VITALS: BP 112/68
[2018-08-16 06:02] LABS: BASOPHILS # (AUTO) 0.04 x10^3/uL (0-0.1); BASOPHILS % (AUTO) 1 % (0-1); EOSINOPHILS # (AUTO) 0.24 x10^3/uL (0-0.4); EOSINOPHILS % (AUTO) 3 % (1-7); LYMPHOCYTES # (AUTO) 1.41 x10^3/uL (1-3.4); LYMPHOCYTES % (AUTO) 17 % (22-44); MD NO; MEAN CORPUSCULAR HEMOGLOBIN 31.6 pg (27.0-34.8); MEAN CORPUSCULAR HGB CONC 34.1 g/dL (32.4-35.8); MEAN CORPUSCULAR VOLUME 92.6 fL (80-100); MONOCYTES # (AUTO) 1.34 x10^3/uL (0.2-0.8); MONOCYTES % (AUTO) 16 % (2-9); NEUTROPHILS # (AUTO) 5.22 x10^3/uL (1.8-6.8); NEUTROPHILS % (AUTO) 63 % (42-75); PLATELET COUNT 212 x10^3/uL (130-400); RED BLOOD COUNT 3.46 x10^6/uL (3.82-5.3); RED CELL DISTRIBUTION WIDTH 14.1 % (9.6-15.2)
[2018-08-16 06:05] LABS: ALBUMIN 2.8 g/dL (3.4-5.0); ANION GAP 5 mmol/L (5-15); CALCIUM 8.7 mg/dL (8.5-10.1); CHLORIDE 107 mmol/L (98-107)
[2018-08-16 06:16] LABS: ALANINE AMINOTRANSFERASE 12 U/L (12-78); ALKALINE PHOSPHATASE 69 U/L (45-117); BILIRUBIN,TOTAL 0.5 mg/dL (0.2-1.0); CREATININE 0.51 mg/dL (0.55-1.02); TOTAL PROTEIN 6.1 g/dL (6.4-8.2)
[2018-08-16] MEDS ORDERED: POTASSIUM CHLORIDE 20 MEQ TAB.ER.PRT PO ONE ×2 (07:00→11:00)
[2018-08-16 07:15] VITALS: BP 116/78
[2018-08-16] MEDS: OMEGA-3/FISH OIL CAPSULE PO SCH (09:04)
[2018-08-16] MEDS: BUSPIRONE 5 MG TABLET PO SCH ×2 (09:05→20:44)
[2018-08-16] MEDS: SENNA/DOCUSATE TABLET PO SCH (09:06)
[2018-08-16] MEDS: QUETIAPINE 25MG TABLET PO SCH (09:06)
[2018-08-16] MEDS: MULTIVITAMIN 1 TABLET PO SCH (09:06)
[2018-08-16] MEDS: GABAPENTIN 100 MG CAPSULE PO SCH ×3 (09:06→20:44)
[2018-08-16 12:46] VITALS: BP 105/65
[2018-08-16] MEDS: ENOXAPARIN 40 MG/0.4 ML SQ SCH (18:22)
[2018-08-16 18:40] VITALS: BP 126/77
[2018-08-16] MEDS: LIDODERM 5% PATCH TD SCH (20:44)
[2018-08-17 01:19] VITALS: BP 101/76
[2018-08-17] MEDS: D5%-0.45% NACL 1,000 ML IV SCH ×3 (03:12→23:04)
[2018-08-17 07:32] VITALS: BP 153/78
[2018-08-17] MEDS: MULTIVITAMIN 1 TABLET PO SCH (08:04)
[2018-08-17] MEDS: OMEGA-3/FISH OIL CAPSULE PO SCH (08:04)
[2018-08-17] MEDS: GABAPENTIN 100 MG CAPSULE PO SCH ×3 (08:04→21:31)
[2018-08-17] MEDS: BUSPIRONE 5 MG TABLET PO SCH ×2 (08:04→21:31)
[2018-08-17] MEDS: QUETIAPINE 25MG TABLET PO SCH (08:04)
[2018-08-17] MEDS: SENNA/DOCUSATE TABLET PO SCH (08:05)
[2018-08-17] MEDS: HYDROcodone/APAP 5/325 TABLET PO PRN (09:50)
[2018-08-17 12:49] VITALS: BP 101/61
[2018-08-17 19:40] VITALS: BP 147/80
[2018-08-17] MEDS: ENOXAPARIN 40 MG/0.4 ML SQ SCH (21:30)
[2018-08-17] MEDS: LIDODERM 5% PATCH TD SCH (21:32)
[2018-08-18 01:05] VITALS: BP 136/80
[2018-08-18] MEDS: HYDROcodone/APAP 5/325 TABLET PO PRN ×2 (02:39→15:38)
[2018-08-18 07:32] VITALS: BP 148/74
[2018-08-18] MEDS: SENNA/DOCUSATE TABLET PO SCH (09:00)
[2018-08-18] MEDS: OMEGA-3/FISH OIL CAPSULE PO SCH (09:09)
[2018-08-18] MEDS: BUSPIRONE 5 MG TABLET PO SCH ×2 (09:10→21:47)
[2018-08-18] MEDS: D5%-0.45% NACL 1,000 ML IV SCH ×2 (09:11→22:39)
[2018-08-18] MEDS: MULTIVITAMIN 1 TABLET PO SCH (09:11)
[2018-08-18] MEDS: QUETIAPINE 25MG TABLET PO SCH (09:11)
[2018-08-18] MEDS: GABAPENTIN 100 MG CAPSULE PO SCH ×3 (09:11→21:47)
[2018-08-18] MEDS: ACETAMINOPHEN 325 MG TABLET PO PRN (09:14)
[2018-08-18 12:25] VITALS: BP 131/71
[2018-08-18] MEDS ORDERED: HYDROcodone/APAP 5/325 TABLET PO PRN (17:30)
[2018-08-18 19:18] VITALS: BP 118/67
[2018-08-18] MEDS: LIDODERM 5% PATCH TD SCH (21:00)
[2018-08-18] MEDS: ENOXAPARIN 40 MG/0.4 ML SQ SCH (21:49)
[2018-08-19 01:34] VITALS: BP 122/70
[2018-08-19 08:30] VITALS: BP 133/76
[2018-08-19] MEDS: SENNA/DOCUSATE TABLET PO SCH (09:00)
[2018-08-19] MEDS: OMEGA-3/FISH OIL CAPSULE PO SCH (09:05)
[2018-08-19] MEDS: BUSPIRONE 5 MG TABLET PO SCH (09:05)
[2018-08-19] MEDS: GABAPENTIN 100 MG CAPSULE PO SCH ×2 (09:05→15:44)
[2018-08-19] MEDS: MULTIVITAMIN 1 TABLET PO SCH (09:05)
[2018-08-19] MEDS: D5%-0.45% NACL 1,000 ML IV SCH (09:05)
[2018-08-19] MEDS: QUETIAPINE 25MG TABLET PO SCH (09:05)
[2018-08-19 13:15] VITALS: BP 96/60
== END 2018-08-19 15:45 | disposition home or self-care (01) ==
LOC: ED 12:40 → INTOOBSV 13:48 → EDIP 13:48 → 3NE 14:33
PROVIDERS: ADMIT Internal Medicine; ATTEND Family Medicine
DX: S22.32XA Fracture of one rib, left side, initial encounter for closed fracture (principal); M81.0 Age-related osteoporosis without current pathological fracture; D72.829 Elevated white blood cell count, unspecified; E55.9 Vitamin D deficiency, unspecified; F03.91 Unspecified dementia, unspecified severity, with behavioral disturbance; F32.9 Major depressive disorder, single episode, unspecified; F41.9 Anxiety disorder, unspecified; I10 Essential (primary) hypertension; K44.9 Diaphragmatic hernia without obstruction or gangrene; M06.9 Rheumatoid arthritis, unspecified; W18.30XA Fall on same level, unspecified, initial encounter; Y92.009 Unspecified place in unspecified non-institutional (private) residence as the place of occurrence of the external cause; Z51.5 Encounter for palliative care; Z85.3 Personal history of malignant neoplasm of breast; Z86.73 Personal history of transient ischemic attack (TIA), and cerebral infarction without residual deficits; Z90.11 Acquired absence of right breast and nipple; Z96.642 Presence of left artificial hip joint
CPT/HCPCS: 36415; 70450; 71045; 73502; 80053; 81003; 83605; 83735; 84100; 84145; 84439; 84443; 85025; 87040; 87324; 93005; 96372; 97162; 97167; 99284; G0378; G8978; G8979; G8980; J1650; 99285